=== PATIENT | female | born 1980 | race Caucasian/White ===

== ENCOUNTER → 2023-10-12 11:17 | Outpatient (REF) | payer BC, SELFPAY | LOC: WDC 11:17 | PROVIDERS: ATTENDING PHYSICIAN Obstetrics & Gynecology Gynecology; FAMILY PHYSICIAN Family Medicine | DX: Z12.31 Encounter for screening mammogram for malignant neoplasm of breast (principal) | CPT/HCPCS: 77063; 77067 ==

== ENCOUNTER → 2024-10-17 08:25 | Outpatient (REF) | payer BC, SELFPAY | LOC: WDC 08:25 | PROVIDERS: ATTENDING PHYSICIAN Obstetrics & Gynecology Gynecology; FAMILY PHYSICIAN Family Medicine | DX: Z12.31 Encounter for screening mammogram for malignant neoplasm of breast (principal) | CPT/HCPCS: 77063; 77067 ==

== ENCOUNTER 2025-02-12 06:27 | Day surgery (SDC) | payer BC, SELFPAY | END 2025-02-12 15:20 | disposition home or self-care (01) | LOC: GI 06:27 | PROVIDERS: ATTENDING PHYSICIAN Surgery | DX: Z12.11 Encounter for screening for malignant neoplasm of colon (principal); K62.5 Hemorrhage of anus and rectum; K64.9 Unspecified hemorrhoids; K62.0 Anal polyp; Z80.0 Family history of malignant neoplasm of digestive organs | CPT/HCPCS: 45385; 88305 ==

== ENCOUNTER → 2025-08-05 07:46 | Outpatient (REF) | payer BC, SELFPAY | LOC: WDC 07:46 | PROVIDERS: ATTENDING PHYSICIAN Obstetrics & Gynecology Gynecology; FAMILY PHYSICIAN Family Medicine | DX: R92.333 Mammographic heterogeneous density, bilateral breasts (principal) | CPT/HCPCS: 76641 ==